=== PATIENT | female | born 1930 | race Caucasian/White ===

== ENCOUNTER → 2016-11-09 | Outpatient (CLI) | payer MEDICARE, OTHER ==
[~2016-11-09] MED LIST: AMBIEN 10MG10 MG PO; AMBIEN10 MG PO; AMITRIPTYLINE25 MG PO; AMITRIPTYLINE50 MG PO; ANTIVERT 25MG25 MG PO; ASPIRIN E.C. 8181 MG PO; C-LEXIN500 MG PO; CARAFATE 1GM1 G PO; CHOLESTYRAM4 GM/5 GM PO; CIPRO 250MG TA250 MG PO; CITRACAL + D 251 TAB PO; CITRACEL; CITRUCEL WITH500 MG; CORDARONE200 MG/TAB PO; CRANBERRY500 M3; CRESTOR40 MG; CYCLOBENZAPRINE10 M1 PO; DIGOXIN0.25 MG PO; EFFEXOR XR75 MG/CAP PO; EXCEDRIN DUAL500 MG PO; FE-TABS325 MG PO; FERROUS SU325 MG/TAB PO; GLUCOPHAGE1000 MG PO; GLUCOPHAGE850 MG/TAB PO; HYDROCODONE/APAP; JANUVIA 100MG100 MG; JANUVIA 100MG100 MG PO; KLONOPIN 1MG1 MG PO; KLONOPIN1 MG PO; LIBRIUM 5MG5 MG/CAP PO; LIBRIUM5 MG PO; LOPRESSOR 225 MG/TAB PO; LOPRESSOR PO; LORTAB 7.5/5001 TAB PO; MAXZIDE-25MG TA1 TAB PO; MECLICOT25 MG PO; MECLIZINE25 MG PO; METFORMIN850 MG PO; NEXIUM 40MG40 MG PO; NEXIUM PO; NORCO 325 MG-101 TAB PO; NORCO 325 MG-7.1 TAB; NORCO 325 MG-7.1 TAB PO; OMEGA 31000 MG PO; PACERONE200 MG PO; PERCOCET 325 MG1 TA2 PO; PERCOCET 325 MG1 TAB PO; RESOURCE BENEFI1 PDR PO; ST. JOSEPH81 M2 PO; TRIAMTERENE/HCT1 TAB PO; TRICOR 48MG48 MG PO; TRILIPIX45 MG PO; TYLENOL 500MG500 MG PO; VERAPAMIL HCL80 MG PO; VERAPAMIL240 MG PO; VESICARE10 MG PO; VITAMIN C BUFF500 MG PO; VITAMIN C500 MG PO; VITAMIN E 400 U4001 PO; VITAMIN E28000 IU PO; VYTORIN 10 MG-21 TAB PO; VYTORIN PO; XARELTO15 MG PO; ZOLPIDEM10 MG PO; [UNRECOGNIZED DRUG - CODE] PO; [UNRECOGNIZED DRUG - OTHER]; citrucel
== END ==
LOC: COL.RAD 13:16
DX: G31.89 Other specified degenerative diseases of nervous system (principal); I67.82 Cerebral ischemia; R41.82 Altered mental status, unspecified
CPT/HCPCS: A9585

== ENCOUNTER 2017-10-26 11:30 | Emergency (ER) | payer MEDICARE, OTHER ==
[~2017-10-26] VITALS: Ht 157.5 cm; Wt 59.1 kg
[2017-10-26 11:35] VITALS: TEMP 98.5
[2017-10-26] MEDS ORDERED: JANUVIA 100MG100 MG PO (12:34)
[2017-10-26] MEDS ORDERED: NAMENDA 10MG TA10 MG PO (12:38)
[2017-10-26 13:27] VITALS: BP 116/67; PULSE 68
== END 2017-10-26 13:33 | disposition home or self-care (01) ==
LOC: COL.ER 11:30
DX: S70.01XA Contusion of right hip, initial encounter (principal); I10 Essential (primary) hypertension; E78.5 Hyperlipidemia, unspecified; I48.91 Unspecified atrial fibrillation; Z85.528 Personal history of other malignant neoplasm of kidney; Z87.440 Personal history of urinary (tract) infections; Z79.84 Long term (current) use of oral hypoglycemic drugs; Z96.641 Presence of right artificial hip joint; W18.39XA Other fall on same level, initial encounter; Y92.002 Bathroom of unspecified non-institutional (private) residence as the place of occurrence of the external cause

== ENCOUNTER 2017-11-03 12:15 | Emergency (ER) | payer MEDICARE, OTHER ==
[~2017-11-03] VITALS: Ht 157.5 cm; Wt 59.1 kg
[~2017-11-03 12:15] MED LIST changes: +NAMENDA 10MG TA10 MG PO
[2017-11-03 12:19] VITALS: BP 134/87; TEMP 98.5
[2017-11-03] MEDS ORDERED: NORCO 325 MG-51 TAB PO (14:24)
[2017-11-03 14:34] VITALS: PULSE 77
== END 2017-11-03 14:34 | disposition home or self-care (01) ==
LOC: COL.ER 12:15
DX: M17.0 Bilateral primary osteoarthritis of knee (principal); I48.91 Unspecified atrial fibrillation; Z79.84 Long term (current) use of oral hypoglycemic drugs

== ENCOUNTER 2018-07-29 17:34 | Emergency (ER) | payer MEDICARE, OTHER ==
[~2018-07-29] VITALS: Ht 157.5 cm; Wt 77.3 kg
[~2018-07-29 17:34] MED LIST changes: +B-12 500 MCG PO; +FOLIC ACID800 MCG PO; +MACROBID 1100 MG/CAP PO; +METAMUCIL3.4 GM/DOS PO; +NATURAL E400 IU PO; +NORCO 325 MG-51 TAB PO; +OXYGEN MC; +PROTONIX 40MG T40 MG PO
[2018-07-29 17:43] VITALS: TEMP 99.2
[2018-07-29 18:31] LABS: BASO % 0.4 % (0.0-2.0); EOS # 0.2 (0.0-0.7); EOS % 3.8 % (0-4.0); GRAN # 2.5 (1.4-6.5); GRAN % 49.9 % (42.2-75.2); HEMATOCRIT 37.2 % (37.0-47.0); HEMOGLOBIN 11.1 g/dl (12.5-16.0); LYMPH # 1.9 (1.2-3.4); LYMPH % 38.7 % (20.0-51.0); MEAN CELL VOLUME 87 fl (80.0-100.0); MEAN CORPUSCULAR HEMOGLOBIN 26 pg (27.0-31.0); MEAN CORPUSCULAR HGB CONC 30 g/dl (33.0-37.0); MONO # 0.4 (0.1-0.6); PLATELET COUNT 256 K/mm3 (130-400); RED BLOOD COUNT 4.28 M/mm3 (4.10-5.30); REDCELL DISTRIBUTION WIDTH-CV 16.3 % (11.5-14.5)
[2018-07-29 18:53] LABS: ALBUMIN 3.9 gm/dL (3.5-5.0); BILIRUBIN,TOTAL 0.3 mg/dL (0.0-1.0); CALCIUM 9.8 mg/dL (8.4-10.2); CREATININE, serum 1.17 mg/dL (0.52-1.25); MAGNESIUM 1.7 mg/dL (1.6-2.3); POTASSIUM 4.8 mmol/L (3.4-5.0); TOTAL PROTEIN 7.4 gm/dL (6.4-8.2)
[2018-07-29 19:23] LABS: COLLECTION METHOD CATHETER
[2018-07-29 19:34] LABS: BUDDING YEAST Present /hpf; MUCOUS Present /lpf; PH 6 (5-8); SQUAMOUS EPITHELIAL None Seen /hpf; URINE APPEARANCE Cloudy; URINE BACTERIA Rare /hpf; URINE BILIRUBIN Negative (NEGATIVE); URINE BLOOD 1+ (NEGATIVE); URINE COLOR Yellow; URINE GLUCOSE Negative (NEGATIVE); URINE KETONE Negative (NEGATIVE); URINE LEUKOCYTE ESTERASE 3+ (NEGATIVE); URINE NITRATE Negative (NEGATIVE); URINE PROTEIN(semi-quant) 2+ (NEGATIVE); URINE UROBILINOGEN Negative (NEGATIVE)
[2018-07-29] MEDS ORDERED: MACROBID 1100 MG/CAP PO (20:05)
[2018-07-29 20:25] VITALS: BP 176/89; PULSE 71
== END 2018-07-29 20:28 | disposition home or self-care (01) ==
LOC: COL.ER 17:34
PROVIDERS: Emergency Medicine
DX: N39.0 Urinary tract infection, site not specified (principal); Z79.84 Long term (current) use of oral hypoglycemic drugs
CPT/HCPCS: J7030

== ENCOUNTER 2018-08-17 18:45 | Emergency (ER) | payer MEDICARE, OTHER ==
[~2018-08-17] VITALS: Ht 157.5 cm; Wt 59.1 kg
[2018-08-17 22:10] VITALS: BP 129/78; PULSE 98; TEMP 98.4
== END 2018-08-17 22:10 | disposition home or self-care (01) ==
LOC: COL.ER 18:45
DX: K56.41 Fecal impaction (principal); E78.5 Hyperlipidemia, unspecified; F32.9 Major depressive disorder, single episode, unspecified; Z90.710 Acquired absence of both cervix and uterus

== ENCOUNTER 2018-10-23 16:01 | Observation (INO) | payer MEDICARE, OTHER ==
[~2018-10-23] VITALS: Ht 157.5 cm; Wt 60.8 kg
[~2018-10-23 16:01] MED LIST changes: +ARICEPT 5MG; +ARICEPT 5MG PO; +BENTYL 20MG20 MG/TAB PO; +FERRO-TIME325 MG PO; +LASIX 20MG TABL20 MG PO; +LINZESS72 MCG PO; +PACERONE100 MG PO; +TOPROL XL 25MG25 MG PO
[2018-10-23 17:16] LABS: BASO % 0.5 % (0.0-2.0); EOS # 0.3 (0.0-0.7); GRAN # 5.2 (1.4-6.5); GRAN % 69.3 % (42.2-75.2); HEMATOCRIT 38.2 % (37.0-47.0); HEMOGLOBIN 11.7 g/dl (12.5-16.0); LYMPH # 1.5 (1.2-3.4); LYMPH % 19.3 % (20.0-51.0); MEAN CELL VOLUME 82 fl (80.0-100.0); MEAN CORPUSCULAR HEMOGLOBIN 25 pg (27.0-31.0); MEAN CORPUSCULAR HGB CONC 31 g/dl (33.0-37.0); MEAN PLATELET VOLUME 8.9 fl (7.4-10.4); MONO # 0.5 (0.1-0.6); MONO % 6.6 % (1.7-9.3); PLATELET COUNT 367 K/mm3 (130-400); RED BLOOD COUNT 4.68 M/mm3 (4.10-5.30); REDCELL DISTRIBUTION WIDTH-CV 16.4 % (11.5-14.5)
[2018-10-23 17:26] LABS: BILIRUBIN,TOTAL 0.4 mg/dL (0.0-1.0); CALCIUM 10.1 mg/dL (8.4-10.2); CREATININE, serum 0.88 mg/dL (0.52-1.25); POTASSIUM 4.6 mmol/L (3.4-5.0)
[2018-10-23 18:16] LABS: COLLECTION METHOD CATHETER
[2018-10-23 18:27] LABS: AMORPHOUS CRYSTAL Present /uL; PH 5 (5-8); SQUAMOUS EPITHELIAL 0-2 /hpf; URINE APPEARANCE Cloudy; URINE BACTERIA Rare /hpf; URINE BILIRUBIN Negative (NEGATIVE); URINE BLOOD 2+ (NEGATIVE); URINE COLOR Yellow; URINE GLUCOSE Negative (NEGATIVE); URINE KETONE Negative (NEGATIVE); URINE LEUKOCYTE ESTERASE 2+ (NEGATIVE); URINE NITRATE Negative (NEGATIVE); URINE PROTEIN(semi-quant) 3+ (NEGATIVE); URINE RBC None Seen /hpf; URINE UROBILINOGEN Negative (NEGATIVE)
[2018-10-24 01:11] VITALS: BP 152/74; PULSE 87; TEMP 98.7
[2018-10-24 04:09] VITALS: BP 134/76; PULSE 80; TEMP 99
[2018-10-24 08:54] VITALS: BP 144/91; BP 162/68; PULSE 72; TEMP 98.1
[2018-10-24 11:24] VITALS: BP 101/46; PULSE 73; TEMP 98.5
[2018-10-24 15:35] VITALS: BP 132/65; PULSE 69; TEMP 98.5
[2018-10-24 20:44] VITALS: BP 127/54; PULSE 73; TEMP 98.8
[2018-10-25 00:08] LABS: HEMOGLOBIN 11.1 g/dl (12.5-16.0); MEAN CELL VOLUME 83 fl (80.0-100.0); MEAN CORPUSCULAR HEMOGLOBIN 26 pg (27.0-31.0); MEAN CORPUSCULAR HGB CONC 31 g/dl (33.0-37.0); PLATELET COUNT 356 K/mm3 (130-400); RED BLOOD COUNT 4.33 M/mm3 (4.10-5.30); REDCELL DISTRIBUTION WIDTH-CV 16.4 % (11.5-14.5)
[2018-10-25 00:09] LABS: HEMATOCRIT 35.8 % (37.0-47.0)
[2018-10-25 00:15] LABS: INR 1.4 (0.8-3.0); PROTHROMBIN TIME 15.6 SECONDS (9.7-12.8)
[2018-10-25 00:18] LABS: PARTIAL THROMBOPLASTIN TIME 35.4 SECONDS (26.0-37.0)
[2018-10-25 00:19] LABS: CALCIUM 9.6 mg/dL (8.4-10.2); CREATININE, serum 1.2 mg/dL (0.52-1.25); POTASSIUM 4.8 mmol/L (3.4-5.0)
[2018-10-25 00:21] VITALS: BP 140/70; PULSE 68; TEMP 98.2
[2018-10-25 03:56] VITALS: BP 151/75; PULSE 67; TEMP 98.1
[2018-10-25 07:45] VITALS: BP 160/74; PULSE 71; TEMP 98.9
[2018-10-25 08:39] VITALS: BP 151/82; PULSE 69
[2018-10-25 11:44] VITALS: BP 157/71; PULSE 62; TEMP 98.7
[2018-10-25 16:04] VITALS: BP 127/91; PULSE 66; TEMP 98.9
[2018-10-25] MEDS ORDERED: KLONOPIN 1MG1 MG PO (16:27)
== END 2018-10-25 18:06 | disposition home health service (06) ==
LOC: COL.ER 16:01 → MEDICAL 20:38
PROVIDERS: Emergency Medicine; Internal Medicine Interventional Cardiology
DX: R09.02 Hypoxemia (principal); F41.9 Anxiety disorder, unspecified; G30.9 Alzheimer's disease, unspecified; F02.80 Dementia in other diseases classified elsewhere, unspecified severity, without behavioral disturbance, psychotic disturbance, mood disturbance, and anxiety; F41.8 Other specified anxiety disorders; F32.9 Major depressive disorder, single episode, unspecified; I50.9 Heart failure, unspecified; I48.91 Unspecified atrial fibrillation; I25.2 Old myocardial infarction; Z90.710 Acquired absence of both cervix and uterus; Z79.01 Long term (current) use of anticoagulants; Z79.84 Long term (current) use of oral hypoglycemic drugs; Z88.1 Allergy status to other antibiotic agents; Z88.8 Allergy status to other drugs, medicaments and biological substances
CPT/HCPCS: A4216; G0378; J0696; J1644; J1940; J2405; J3010; J7030; Q9967

== ENCOUNTER 2018-12-07 11:17 | Emergency (ER) | payer MEDICARE, OTHER ==
[~2018-12-07] VITALS: Ht 160 cm; Wt 59.1 kg
[2018-12-07 11:34] VITALS: TEMP 97.9
[2018-12-07] MEDS ORDERED: CARAFATE 1GM1 G PO (11:52)
[2018-12-07] MEDS ORDERED: TRICOR 48MG48 MG PO (11:52)
[2018-12-07 12:19] LABS: BASO % 0.4 % (0.0-2.0); EOS # 0.3 (0.0-0.7); EOS % 6.8 % (0-4.0); GRAN % 40.7 % (42.2-75.2); HEMATOCRIT 38.8 % (37.0-47.0); HEMOGLOBIN 11.5 g/dl (12.5-16.0); LYMPH # 2.1 (1.2-3.4); LYMPH % 42.7 % (20.0-51.0); MEAN CELL VOLUME 88 fl (80.0-100.0); MEAN CORPUSCULAR HEMOGLOBIN 26 pg (27.0-31.0); MEAN CORPUSCULAR HGB CONC 30 g/dl (33.0-37.0); MEAN PLATELET VOLUME 10.1 fl (7.4-10.4); MONO # 0.5 (0.1-0.6); MONO % 9.2 % (1.7-9.3); PLATELET COUNT 136 K/mm3 (130-400); RED BLOOD COUNT 4.43 M/mm3 (4.10-5.30); REDCELL DISTRIBUTION WIDTH-CV 20.6 % (11.5-14.5)
[2018-12-07 12:30] LABS: ALBUMIN 3.6 gm/dL (3.5-5.0); BILIRUBIN,TOTAL 0.2 mg/dL (0.0-1.0); CALCIUM 9.3 mg/dL (8.4-10.2); CREATININE, serum 1.1 mg/dL (0.52-1.25); POTASSIUM 5.1 mmol/L (3.4-5.0); TOTAL PROTEIN 6.7 gm/dL (6.4-8.2)
[2018-12-07 12:32] LABS: PH 5 (5-8); SQUAMOUS EPITHELIAL 0-2 /hpf; URINE APPEARANCE Turbid; URINE BACTERIA None Seen /hpf; URINE BILIRUBIN Negative (NEGATIVE); URINE BLOOD 1+ (NEGATIVE); URINE COLOR Yellow; URINE GLUCOSE Negative (NEGATIVE); URINE KETONE Negative (NEGATIVE); URINE LEUKOCYTE ESTERASE 3+ (NEGATIVE); URINE NITRATE Negative (NEGATIVE); URINE PROTEIN(semi-quant) Negative (NEGATIVE); URINE RBC 0-2 /hpf; URINE UROBILINOGEN Negative (NEGATIVE)
[2018-12-07 13:27] LABS: COLLECTION METHOD CATHETER
[2018-12-07] MEDS ORDERED: OMNICEF 300MG300 MG PO (13:38)
[2018-12-07 13:51] VITALS: BP 99/50; PULSE 87
== END 2018-12-07 14:01 | disposition home or self-care (01) ==
LOC: COL.ER 11:17
PROVIDERS: Emergency Medicine
DX: N39.0 Urinary tract infection, site not specified (principal); I50.9 Heart failure, unspecified; I48.91 Unspecified atrial fibrillation; E11.9 Type 2 diabetes mellitus without complications; Z90.710 Acquired absence of both cervix and uterus; Z79.84 Long term (current) use of oral hypoglycemic drugs
CPT/HCPCS: A4216; J0696; J2270; J2405; Q9967

== ENCOUNTER 2019-02-07 12:59 | Emergency (ER) | payer MEDICARE, OTHER ==
[~2019-02-07] VITALS: Ht 157.5 cm; Wt 61.4 kg
[~2019-02-07 12:59] MED LIST changes: +OMNICEF 300MG300 MG PO
[2019-02-07 13:10] VITALS: TEMP 97.5
[2019-02-07 13:52] LABS: BASO % 0.6 % (0.0-2.0); EOS # 0.1 (0.0-0.7); EOS % 1.2 % (0-4.0); GRAN # 4.5 (1.4-6.5); GRAN % 65.1 % (42.2-75.2); HEMATOCRIT 39.2 % (37.0-47.0); HEMOGLOBIN 12.4 g/dl (12.5-16.0); LYMPH # 1.7 (1.2-3.4); MEAN CELL VOLUME 94 fl (80.0-100.0); MEAN CORPUSCULAR HEMOGLOBIN 30 pg (27.0-31.0); MEAN CORPUSCULAR HGB CONC 32 g/dl (33.0-37.0); MONO # 0.6 (0.1-0.6); PLATELET COUNT 169 K/mm3 (130-400); RED BLOOD COUNT 4.17 M/mm3 (4.10-5.30); REDCELL DISTRIBUTION WIDTH-CV 17.9 % (11.5-14.5)
[2019-02-07 14:05] LABS: ALBUMIN 3.8 gm/dL (3.5-5.0); BILIRUBIN,TOTAL 0.3 mg/dL (0.0-1.0); CALCIUM 9.6 mg/dL (8.4-10.2); CREATININE, serum 0.84 (0.52-1.25); POTASSIUM 4.7 mmol/L (3.4-5.0); TOTAL PROTEIN 7.2 gm/dL (6.4-8.2)
[2019-02-07 14:27] LABS: COLLECTION METHOD CATHETER
[2019-02-07 14:38] LABS: AMORPHOUS CRYSTAL Present /uL; PH 7 (5-8); SQUAMOUS EPITHELIAL None Seen /hpf; URINE APPEARANCE Clear; URINE BACTERIA None Seen /hpf; URINE BILIRUBIN Negative (NEGATIVE); URINE BLOOD 1+ (NEGATIVE); URINE COLOR Yellow; URINE GLUCOSE Negative (NEGATIVE); URINE KETONE Negative (NEGATIVE); URINE LEUKOCYTE ESTERASE 1+ (NEGATIVE); URINE NITRATE Negative (NEGATIVE); URINE PROTEIN(semi-quant) 2+ (NEGATIVE); URINE UROBILINOGEN Negative (NEGATIVE)
[2019-02-07] MEDS ORDERED: CEPHALEXIN500 M1 PO (14:49)
[2019-02-07 15:20] VITALS: BP 162/103; PULSE 116
--- NOTE | 2019-02-07 16:07 | NUR ---
HUMBLE responded to an ED consult due to home environment concerns and possibly home health needs. HUMBLE met with patient and son. Patient's son is the primary water use inspector. Patient's PCP is concerned because patient's son has psychiatric issues and is not currently taking his medications. Patient reported to her PCP that she has not been sleeping because the house is cold. There was concern that patient's house does not have heat. HUMBLE addressed this and patient's son reported he contacted the heating [employer] and they fixed it. HUMBLE contacted the [employer] as well and confirmed the issue was not due to inability to pay the bill. Patient's son reported patient has a home health aid through [employer] that visits once a week. HUMBLE contacted [employer] and confirmed this as well. HUMBLE also made an APS reports (intake ID [id number]). HUMBLE reported back to nurse.
== END 2019-02-07 15:52 | disposition home or self-care (01) ==
LOC: COL.ER 12:59
PROVIDERS: Emergency Medicine
DX: R19.7 Diarrhea, unspecified (principal); N39.0 Urinary tract infection, site not specified; I48.92 Unspecified atrial flutter
CPT/HCPCS: J2405; J7030

== ENCOUNTER 2019-02-15 07:01 | Inpatient (IN) | payer MEDICARE, OTHER ==
[~2019-02-15] VITALS: Ht 160 cm; Wt 59.1 kg
[~2019-02-15 07:01] MED LIST changes: +CEPHALEXIN500 M1 PO
[2019-02-15 07:49] LABS: BASO % 0.3 % (0.0-2.0); EOS # 0.2 (0.0-0.7); EOS % 3.7 % (0-4.0); GRAN # 4.2 (1.4-6.5); HEMOGLOBIN 11.1 g/dl (12.5-16.0); LYMPH # 1.5 (1.2-3.4); LYMPH % 23.7 % (20.0-51.0); MEAN CELL VOLUME 96 fl (80.0-100.0); MEAN CORPUSCULAR HEMOGLOBIN 30 pg (27.0-31.0); MEAN CORPUSCULAR HGB CONC 31 g/dl (33.0-37.0); MEAN PLATELET VOLUME 9.4 fl (7.4-10.4); MONO # 0.3 (0.1-0.6); PLATELET COUNT 207 K/mm3 (130-400); RED BLOOD COUNT 3.66 M/mm3 (4.10-5.30); REDCELL DISTRIBUTION WIDTH-CV 16.8 % (11.5-14.5)
[2019-02-15 07:50] LABS: HEMATOCRIT 35.3 % (37.0-47.0)
[2019-02-15 07:59] LABS: ALBUMIN 3.6 gm/dL (3.5-5.0); BILIRUBIN,TOTAL 0.7 mg/dL (0.0-1.0); CALCIUM 9.7 mg/dL (8.4-10.2); CREATININE, serum 0.81 (0.52-1.25); POTASSIUM 4.1 mmol/L (3.4-5.0); TOTAL PROTEIN 7.2 gm/dL (6.4-8.2)
[2019-02-15 08:00] LABS: COLLECTION METHOD CATHETER
[2019-02-15 08:05] LABS: PH 5 (5-8); SQUAMOUS EPITHELIAL None Seen /hpf; URINE APPEARANCE Hazy; URINE BACTERIA None Seen /hpf; URINE BILIRUBIN Negative (NEGATIVE); URINE BLOOD 1+ (NEGATIVE); URINE COLOR Yellow; URINE GLUCOSE 1+ (NEGATIVE); URINE KETONE Negative (NEGATIVE); URINE LEUKOCYTE ESTERASE 2+ (NEGATIVE); URINE NITRATE Negative (NEGATIVE); URINE PROTEIN(semi-quant) 2+ (NEGATIVE); URINE RBC 20-50 /hpf; URINE UROBILINOGEN Negative (NEGATIVE)
[2019-02-15 08:26] LABS: TROPONIN-I 0.064 ng/mL (0.000-0.035)
[2019-02-15] MEDS ORDERED: ARICEPT 5MG PO ×2 (09:22→15:27)
[2019-02-15 11:09] VITALS: BP 153/92; PULSE 91; TEMP 97.5
--- NOTE | 2019-02-15 15:00 | NUR ---
Patient alert, confused to time and year. See assessment. Short term memory noted to be decreased. C/o urinary frequency and burning. No other c/o at this time.
[2019-02-15] MEDS ORDERED: KLONOPIN 1MG1 MG PO (15:24)
[2019-02-15] MEDS ORDERED: VESICARE10 MG PO (15:25)
[2019-02-15] MEDS ORDERED: XARELTO15 MG PO (15:25)
[2019-02-15] MEDS ORDERED: NORCO 325 MG-7.1 TAB PO (15:26)
[2019-02-15] MEDS ORDERED: EFFEXOR 75M75 MG/TAB PO (15:26)
[2019-02-15] MEDS ORDERED: TOPROL XL 25MG25 MG PO (15:27)
[2019-02-15] MEDS ORDERED: LINZESS72 MCG PO (15:28)
[2019-02-15 17:18] VITALS: BP 155/99; PULSE 86; TEMP 97.9
--- NOTE | 2019-02-15 20:00 | NUR ---
Assessment completed- lungs clear, abdominal sounds active, pulses +3, cap refill <3 seconds, denies pian.
[2019-02-15 20:17] VITALS: BP 151/91; PULSE 122; TEMP 98.6
--- NOTE | 2019-02-15 23:02 | NUR ---
Patient recieved an Ambien this evening to help with insomnia. One hour later found wandering hallway. Patient has been moved to room 313 to be closer to nurse's station. Pt put in yellow gown, slippers, bed alarm turned on. Klonipin administered. Lab called- 6 hour troponin never drawn. Dr. Brooks notified- has orders for troponin in the am, changed klonopin from BID to q4h PRN.
--- NOTE | 2019-02-15 23:59 | NUR ---
PT REFUSING MIDNIGHT VITALS AT THIS TIME.
--- NOTE | 2019-02-16 04:24 | NUR ---
NO VITALS AT THIS TIME, PT WILL NOT LET NURSES GET VITALS WHILE SHE IS SLEEPING
--- NOTE | 2019-02-16 05:16 | NUR ---
After pt settled down for the evening, pt has been sleeping. Have not been able to obtain vitals due to agitation and unwillingness to let nurse's near pt. Pt currently asleep, bed alarm on, call light in reach, in view of nurse's station.
--- NOTE | 2019-02-16 07:30 | NUR ---
REPORT GIVEN TO LIBORIO GEORGE. PATIENT GETTING LABS DRAWN AT THIS TIME.
[2019-02-16 08:38] VITALS: BP 157/96; PULSE 115; TEMP 97.4
[2019-02-16 10:25] VITALS: BP 145/75; PULSE 119; TEMP 97.5
[2019-02-16 10:37] LABS: CALCIUM 9.5 mg/dL (8.4-10.2); CREATININE, serum 0.8 (0.52-1.25); POTASSIUM 4.4 mmol/L (3.4-5.0)
[2019-02-16 10:51] LABS: TROPONIN-I 0.054 ng/mL (0.000-0.035)
--- NOTE | 2019-02-16 12:40 | NUR ---
Patient lives at home with her son (Aime) in [place], [place] and plans to return home upon discharge if her son feels he can continue to care for her as he is her primary caregiver. Patient uses a walker for mobility assistance as needed, her primary care physician is Dr. Donavan Brooks, and her pharmacy is [facility]. Patient does not currently have advance directive paperwork completed but has been discussing durable power of business attorney paperwork with her primacy care physician and her son. No further needs at this time and social worker aide will follow as needed.
[2019-02-16 18:02] VITALS: BP 146/73; PULSE 68; TEMP 97.9
--- NOTE | 2019-02-16 18:24 | NUR ---
END OF SHIFT NOTE. PATIENT AGITATED AND IMPULSIVE THIS MORNING. PATIENT GIVEN PRN DOSE OF KOLONIPIN. PATIENT A&O TO SELF, YEAR AND THAT SHE IS IN THE HOSPITAL. TACHYCARDIA NOTED, OTHERWISE VSS. POSITIVE PEDAL PULSES EQUAL BILATERALLY. 2+ PITTING-EDEMA TO BLE NOTED. RIGHT HAND TO INT. SEE MORNING ASSESSMENT. SON PRESENT AT THE BEDSIDE FOR MOST OF THE MORNING. FALL RISK PRECAUTIONS IN PLACE.
--- NOTE | 2019-02-16 19:17 | NUR ---
Report received from Steph CAPONE
[2019-02-16 19:36] VITALS: BP 158/69; PULSE 60; TEMP 97.6
--- NOTE | 2019-02-16 21:00 | NUR ---
Up to bedside commode and returned to bed. Assessment complete. Lungs clear. Heart sounds normal. Bowels active x4. Bilateral lower leg edema +3. Reports 6/10 generalized pain. Primary reports right lower leg. Will provide PRN norco as ordered. INT to right AC flushed without complications. Patient orientated to self and place, unable to state date. Neuro checks completed and charted. Denies other needs at this time. Bed alarm in place.
[2019-02-17 00:05] VITALS: BP 139/84; PULSE 45; TEMP 98.7
--- NOTE | 2019-02-17 00:09 | NUR ---
Up to bedside commode and returned to bed. Call light in reach. Bed alarm in place
[2019-02-17 03:50] VITALS: BP 148/98; PULSE 116; TEMP 98.3
--- NOTE | 2019-02-17 04:17 | NUR ---
Up to restroom and returned to bed. Call light in reach.
--- NOTE | 2019-02-17 04:28 | NUR ---
Rating pain 6/10 in ABD, rectum and right leg. Provided with PRN norco
--- NOTE | 2019-02-17 06:08 | NUR ---
Patient resting in bed this AM. Had uneventful night. Given x2 doses of norco for rectal and back pain during night. Denies needs at this time. Call light in reach.
--- NOTE | 2019-02-17 07:13 | NUR ---
Report given to LIBORIO Beckman
[2019-02-17 07:39] VITALS: BP 152/92; PULSE 117; TEMP 97.7
--- NOTE | 2019-02-17 08:07 | NUR ---
Pt assessment complete. Pt is laying in bed upon entry, she is alert and oriented to person only. She is currently reporting LLQ and rectum pain. Patient assisted to the bedside cammode with assistance of one, bloody urine present. Breakfast ordered for patient. No needs at this time. Call light within reach.
[2019-02-17 11:47] VITALS: BP 154/84; PULSE 108; TEMP 97.3
--- NOTE | 2019-02-17 14:18 | NUR ---
SW contacted [facility] and talked with patients case manager. She reports they were doing weekly private pay medication management until patients son cancelled that mid dec due to him feeling that he could do that. They still see her weekly for bathing but that is the only service they provide.
--- NOTE | 2019-02-17 14:36 | NUR ---
HUMBLE left voicemails for both Halima and Taryn at [facility].
[2019-02-17 15:45] VITALS: BP 139/79; PULSE 41; TEMP 97.6
--- NOTE | 2019-02-17 15:51 | NUR ---
SW talked to patients financial PRADEEP Mcfadden who reports patient probably has around 40k in accounts. He didn't know that her memory was getting worse and reports he will contact patient and son in a few days.
--- NOTE | 2019-02-17 16:33 | NUR ---
SW called patients son and discussed placement. He is open to senior care at this time and would like [facility] and [facility]. Referrals made to both. verbal choice form placed on chart.
--- NOTE | 2019-02-17 17:54 | NUR ---
Pt straight cath'd for urine sample. Sterile procedure followed. Approximately 200mls or urine drained. Pt tolerated without complications. No needs at this time.
[2019-02-17 18:07] LABS: COLLECTION METHOD CATHETER
[2019-02-17 18:29] LABS: AMORPHOUS CRYSTAL Present /uL; MUCOUS Present /lpf; PH 5 (5-8); SQUAMOUS EPITHELIAL 0-2 /hpf; URINE APPEARANCE Hazy; URINE BACTERIA Rare /hpf; URINE BILIRUBIN Negative (NEGATIVE); URINE BLOOD 3+ (NEGATIVE); URINE COLOR Yellow; URINE GLUCOSE Negative (NEGATIVE); URINE KETONE Negative (NEGATIVE); URINE LEUKOCYTE ESTERASE Trace (NEGATIVE); URINE NITRATE Negative (NEGATIVE); URINE PROTEIN(semi-quant) 1+ (NEGATIVE); URINE RBC >50 /hpf; URINE UROBILINOGEN Negative (NEGATIVE)
--- NOTE | 2019-02-17 18:54 | NUR ---
Pt had uneventful day. Frequent urination, initially very bloody - cleared up through the day. Continued to report LL abdominal pain and rectum pain, Dr. Brooks aware. Pt sleeping at this time. Call light within reach.
[2019-02-17 19:25] VITALS: BP 150/78; PULSE 83; TEMP 98.7
--- NOTE | 2019-02-17 21:30 | NUR ---
Up to bedside commode and returned to bed. Assessment complete. Lungs clear. Heart sounds normal. Bowels active x4. Pulses present throughout. Bilateral lower leg edema +2 present. Reports 4/10 stomach and leg pain. Provided with PRN norco. Denies other needs at this time. Call light in reach.
[2019-02-18] VITALS (7 sets, daily range): BP systolic 124–158; BP diastolic 61–116; PULSE 85–107; TEMP 97.2–98.4
--- NOTE | 2019-02-18 00:13 | NUR ---
Up to bedside commode and returned to bed. Reports 4/10 pain in stomach/rectum at this time. Will provide PRN norco when due. Denies other needs at this time. Call light in reach.
--- NOTE | 2019-02-18 04:10 | NUR ---
up to bedside commode and returned to bed. Call light in reach.
--- NOTE | 2019-02-18 05:55 | NUR ---
Provided norco for 8/ stomach and rectal pain.
--- NOTE | 2019-02-18 06:16 | NUR ---
Patient up to restroom several times throughout night, otherwise uneventful. Denies needs at this time. Call light reach.
--- NOTE | 2019-02-18 06:46 | NUR ---
Report given to LIBORIO Wolfe
--- NOTE | 2019-02-18 10:11 | NUR ---
PT SITTING IN BED, JUST HAD A BEDSIDE CYSTO. NO COMPLAINTS OF PAIN. BREATHING IS EVEN AND UNLABORED. PT IS ALERT AND ORIENTED TO PLACE. SHE GETS CONFUSED WHEN TALKING ABOUT MEDICATIONS OR WHY SHE IS IN THE HOSPITAL. SON AT BEDSIDE. COMPLETED MORNING ASSESSMENT. DENIES ANY NEEDS AT THIS TIME.
--- NOTE | 2019-02-18 10:20 | NUR ---
Trinidad, at [facility], reports that they are unable to accept the patient.
--- NOTE | 2019-02-18 10:40 | NUR ---
First visit from the water pump operator. No needs right now.
--- NOTE | 2019-02-18 13:59 | NUR ---
Abdirizak, at [facility], reports that they can accept the patient for a skilled stay. SW then met with the patient and patient's son to update on referrals. The patient and patient's son report that they are agreeable for patient to transfer to [facility] upon discharge. SW to fax updates to [facility] and continue to follow.
--- NOTE | 2019-02-18 15:00 | NUR ---
Pt states she had an upset stomach but that has passed now. Pt just had an eposiode of diarrhea. Pt states the cleaning is causing her rectal pain. Pt states pain is okay right now, will continue to monitor.
--- NOTE | 2019-02-18 15:26 | NUR ---
HUMBLE contacted Halima, with APS, for an update on status of a report made on the patient. Halima reports that the patient was assigned to Taryn and that Taryn will be back in the office tomorrow morning, 02/19, around 0800. HUMBLE to attempt to contact Taryn tomorrow morning.
--- NOTE | 2019-02-18 18:51 | NUR ---
Pt lying in bed, awakens to verbal stimuli. Denies any needs. Hand off report given to Janet CAPONE
--- NOTE | 2019-02-18 19:02 | NUR ---
Report received from Rolo Wolfe
--- NOTE | 2019-02-18 19:16 | NUR ---
Resting in bed. Assessment complete. Lungs clear. Heart sounds normal. Bowels active x4. Pulses present throught. Bilateral lower leg edema +2 present. Patient assisted to bedside commode to urinate. Yellow clear urine. Returned to bed. Denies needs at this time. INT to right AC flushes without complications. Denies pain. Call light in reach. Bed alarm in place.
--- NOTE | 2019-02-18 23:17 | NUR ---
Provided patient with PRN norco for 4/10 right leg pain
[2019-02-19] VITALS (7 sets, daily range): BP systolic 132–152; BP diastolic 72–99; PULSE 92–108; TEMP 97.3–98.4
--- NOTE | 2019-02-19 00:22 | NUR ---
Up to bedside commode and returned to bed. Denies pain. Call light in reach.
--- NOTE | 2019-02-19 01:44 | NUR ---
Report given to Fay CAPONE
--- NOTE | 2019-02-19 03:24 | NUR ---
recieved report from LIBORIO Gonzales. pt sleeping in bed at this time. call light inreach. bed alarm on.
--- NOTE | 2019-02-19 06:47 | NUR ---
pt had an uneventful night. assisted to C mult times throughout night. no pain. reported feeling jittery, no physical changes noted. steady with walker. no needs at this time. call light in reach
--- NOTE | 2019-02-19 08:20 | NUR ---
Pt up in chair, with breakfast. Pt is alert and partially oriented. Completed morning assessment. Pt breathing even and unlabored, denies pain or shortness of breath. Pt complains of numbness in finger tips and is anxious about why there had been blood in urine. Assured pt as soon as results from the cysto was received she would be updated. Pt still urinating frequently. Son at bedside. Call light in reach.
[2019-02-19] MEDS ORDERED: EXELON PAT4.6 MG/24 TD (13:14)
[2019-02-19] MEDS ORDERED: Remove Patch TD (13:14)
--- NOTE | 2019-02-19 13:18 | NUR ---
HUMBLE attempted to contact Taryn, APS Worker, to update. HUMBLE left a voicemail.
--- NOTE | 2019-02-19 15:00 | NUR ---
community services officer spoke with pt about discharging, pt stated she would not go there and needed to go home. I went in room to speak with pt after speaking with Dr. Brooks. Explained to pt why Dr. Brooks requested she go to [facility]. Pt was adamant that she would not go to [facility]. Following up with secondary social studies teacher.
--- NOTE | 2019-02-19 16:41 | NUR ---
HUMBLE met with the patient and patient's son to review discharge plan. The patient requested to speak to Dr. Brooks about her discharge disposition. The patient informed HUMBLE that at this time, she does not want to go to [facility]. Dr. Brooks came to speak to the patient and she is now agreeable to transfer to [facility] tomorrow morning, 02/20. HUMBLE updated Abdirizak at [facility] and will continue to follow.
--- NOTE | 2019-02-19 18:10 | NUR ---
Pt sitting on side of bed, denies pain. Pt has agreed to go to [facility] tomorrow. Her son Aime left but will be back again at 7am. Pt denies any needs at this time.
--- NOTE | 2019-02-19 19:09 | NUR ---
Gave report to Fay CAPONE. Pt in bed, eyes closed, breathing even and unlabored.
--- NOTE | 2019-02-19 21:30 | NUR ---
pt resting in bed Alert and partially oriented. pt is forgetful at times. no pain at this time. assisted to BSC with walker and gatebelt. shift assessment complete. IV flushes wellm no redness. no swelling. call light in reach. bed alarm on. fall precautions in place.
[2019-02-20 04:26] VITALS: BP 165/100; PULSE 91; TEMP 97.5
[2019-02-20 04:29] VITALS: BP 154/89
--- NOTE | 2019-02-20 05:46 | NUR ---
pt had an uneventful night. reported no pain no SOA. pt reported feeling jittery 45 mins after klonopin administeration. pt assisted to BSC mult times with walker and gatebelt. bed alarm on. no needs at thsi time. call light in reach
--- NOTE | 2019-02-20 07:15 | NUR ---
report given to LIBORIO Abbott. pt sleeping son in room
[2019-02-20 07:27] VITALS: BP 149/49; PULSE 107; TEMP 97.4
--- NOTE | 2019-02-20 07:45 | NUR ---
Patient is resting in bed, son is at bedside. Patient is expecting to discharge immediately. Dr. Brooks present at bedside and is explaining facts to patient and son. HR is regular S1S2. Lung sounds are clear. Bowel sounds audible. No edema noted. Is alert and with some confusion. Son is at bedside. Call light is within reach.
[2019-02-20 08:00] VITALS: BP 141/82; PULSE 107; TEMP 97.6
--- NOTE | 2019-02-20 10:25 | NUR ---
Dr. Brooks met with the patient this morning and the patient is agreeable to transfer to [facility] today. The patient's son is aware of discharge. The patient is to discharge today, 02/20, to [facility] for a skilled stay. Transportation was set for 1130, via [facility]. SW informed the patient's nurse. SW attempted to contact the patient's son, Aime, to inform of time. SW left a voicemail. No additional needs at this time.
--- NOTE | 2019-02-20 11:30 | NUR ---
Patient discharged to [facility] for detention care. Receiving facility picked patient up. Belongings sent with patient.
--- NOTE | 2019-02-20 12:10 | NUR ---
Primary nurse was assisted with [phone] patient care by [employer] student Frankie Mims and [employer] instructor Betty Shukla RN-BC
--- NOTE | 2019-02-20 16:09 | NUR ---
Taryn, APS Worker, left a voicemail for HUMBLE. She informed HUMBLE that she is working on paperwork for guardianship for the patient and that she is aware of the patient going to [facility].
== END 2019-02-20 11:30 | DRG 690 ==
LOC: COL.ER 07:01 → MEDICAL 08:47
PROVIDERS: Emergency Medicine; Urology; ADMIT Emergency Medicine
PROC: 0TJB8ZZ Inspection of Bladder, Via Natural or Artificial Opening Endoscopic (ICD-10-PCS; principal; 2019-02-18 13:00)
DX: N39.0 Urinary tract infection, site not specified (principal); F05 Delirium due to known physiological condition; I50.32 Chronic diastolic (congestive) heart failure; G30.9 Alzheimer's disease, unspecified; F02.80 Dementia in other diseases classified elsewhere, unspecified severity, without behavioral disturbance, psychotic disturbance, mood disturbance, and anxiety; J44.9 Chronic obstructive pulmonary disease, unspecified; I48.2 Chronic atrial fibrillation; E11.9 Type 2 diabetes mellitus without complications; E78.5 Hyperlipidemia, unspecified; Z85.520 Personal history of malignant carcinoid tumor of kidney; F32.9 Major depressive disorder, single episode, unspecified; Z91.14 Patient's other noncompliance with medication regimen; R31.0 Gross hematuria; Z79.01 Long term (current) use of anticoagulants
CPT/HCPCS: A4216; J0696; J7030; Q9967

== ENCOUNTER → 2019-03-03 | Outpatient (REF) ==
[~2019-03-03] MED LIST changes: +EFFEXOR 75M75 MG/TAB PO; +EXELON PAT4.6 MG/24 TD; +Remove Patch TD
[2019-03-03 12:54] LABS: COLLECTION METHOD CLEAN CATCH
[2019-03-03 13:01] LABS: PH 6 (5-8); SQUAMOUS EPITHELIAL 0-2 /hpf; URINE APPEARANCE Hazy; URINE BACTERIA None Seen /hpf; URINE BILIRUBIN Negative (NEGATIVE); URINE BLOOD 3+ (NEGATIVE); URINE COLOR Yellow; URINE GLUCOSE Negative (NEGATIVE); URINE KETONE Negative (NEGATIVE); URINE LEUKOCYTE ESTERASE Negative (NEGATIVE); URINE NITRATE Negative (NEGATIVE); URINE PROTEIN(semi-quant) 1+ (NEGATIVE); URINE RBC >50 /hpf; URINE UROBILINOGEN Negative (NEGATIVE)
== END ==
LOC: ZCOL.LAB 12:51
PROVIDERS: Emergency Medicine
DX: N39.0 Urinary tract infection, site not specified (principal)

== ENCOUNTER → 2019-03-06 | Outpatient (REF) ==
[2019-03-06 12:38] LABS: COLLECTION METHOD CLEAN CATCH
[2019-03-06 12:47] LABS: PH 7 (5-8); SQUAMOUS EPITHELIAL 0-2 /hpf; URINE APPEARANCE Clear; URINE BACTERIA None Seen /hpf; URINE BILIRUBIN Negative (NEGATIVE); URINE BLOOD 2+ (NEGATIVE); URINE COLOR Yellow; URINE GLUCOSE Negative (NEGATIVE); URINE KETONE Negative (NEGATIVE); URINE LEUKOCYTE ESTERASE Negative (NEGATIVE); URINE NITRATE Negative (NEGATIVE); URINE PROTEIN(semi-quant) 2+ (NEGATIVE); URINE RBC >50 /hpf; URINE UROBILINOGEN Negative (NEGATIVE)
== END ==
LOC: ZCOL.LAB 12:37
PROVIDERS: Emergency Medicine
DX: N39.0 Urinary tract infection, site not specified (principal)

== ENCOUNTER → 2019-05-15 | Outpatient (CLI) | payer MEDICARE, OTHER | LOC: ZCOL.LAB 09:23 | DX: E11.9 Type 2 diabetes mellitus without complications (principal); R94.6 Abnormal results of thyroid function studies ==

== ENCOUNTER 2019-08-03 17:33 | Inpatient (IN) | payer MEDICARE, OTHER ==
[2019-08-03] VITALS (275 sets, daily range): BP systolic 101; BP diastolic 76; PULSE 81; TEMP 98.5; O2SAT 45–100
[~2019-08-03] VITALS: Ht 154.9 cm; Wt 59.0 kg
[2019-08-03 18:09] LABS: BASO % 0.3 % (0.0-2.0); EOS # 0.1 (0.0-0.7); EOS % 1.1 % (0-4.0); GRAN # 4.9 (1.4-6.5); GRAN % 66.7 % (42.2-75.2); HEMATOCRIT 44.6 % (37.0-47.0); HEMOGLOBIN 13.9 g/dl (12.5-16.0); LYMPH # 1.7 (1.2-3.4); MEAN CELL VOLUME 84 fl (80.0-100.0); MEAN CORPUSCULAR HEMOGLOBIN 26 pg (27.0-31.0); MEAN CORPUSCULAR HGB CONC 31 g/dl (33.0-37.0); MEAN PLATELET VOLUME 9.4 fl (7.4-10.4); MONO # 0.6 (0.1-0.6); MONO % 8.5 % (1.7-9.3); PLATELET COUNT 224 K/mm3 (130-400); RED BLOOD COUNT 5.29 M/mm3 (4.10-5.30); REDCELL DISTRIBUTION WIDTH-CV 18.7 % (11.5-14.5)
[2019-08-03] MEDS ORDERED: ALMACONE 360 M360 ML PO (18:16)
[2019-08-03 18:18] LABS: ALANINE AMINOTRANSFERASE < 6 U/L (9-52); ALBUMIN 4.2 gm/dL (3.5-5.0); ALKALINE PHOSPHATASE 133 U/L (50-136); ANION GAP 15 mmol/L (7-16); AST,SGOT 24 U/L (15-37); BILIRUBIN,TOTAL 0.6 mg/dL (0.0-1.0); BLOOD UREA NITROGEN 31 mg/dL (7-17); CALCIUM 10.2 mg/dL (8.4-10.2); CARBON DIOXIDE 24 mmol/L (22-30); CHLORIDE 98 mmol/L (98-107); CREATINE KINASE 25 U/L (30-135); CREATININE, serum 1.63 (0.52-1.25); GLUCOSE 180 mg/dL (74-106); POTASSIUM 4.4 mmol/L (3.4-5.0); SODIUM 138 mmol/L (137-145); TOTAL PROTEIN 8.1 gm/dL (6.4-8.2)
[2019-08-03 18:36] LABS: TROPONIN-I 0.066 ng/mL (0.000-0.035)
[2019-08-03 18:45] LABS: INR 1.8 (0.8-3.0); PROTHROMBIN TIME 21.1 SECONDS (9.7-12.8)
[2019-08-03 18:47] LABS: PARTIAL THROMBOPLASTIN TIME 40.8 SECONDS (26.0-37.0)
--- NOTE | 2019-08-03 19:08 | NUR ---
LIBORIO Boyd calls at this time to give report on patient. Patient will be brought to ICU 5.
--- NOTE | 2019-08-03 19:22 | NUR ---
Patient arrives at this time via stretcher. Patient transferred to unit bed via slide. Attached patient to unit monitoring equipment and vitals obtained. Assessment complete. Patient is alert and oriented to self. Patient knows she is at [facility] in [place], but does not know why. Is unable to tell year, month, or date. Unclear if this is baseline for the patient. She follows commands and has strong and equal neurosurgery spine physician bilaterally. Patient has no complaints of pain unless right shoulder is moved. This is a chronic issue. Lungs are clear bilaterally with diminished bases. HR is irregular, normal S1 and S2 heard. Patient is in afib, but rate controlled in the 70-80's. BP is low 100's systolic and maintaining. Bowel sounds are active x4. Patient is found to be soiled in her brief, a small liquid BM. Patient cleaned and pericare provided. Placed patient on a purewick catheter for accurate I+O's. Patient's skin is intact, there is some excoriation around the groin that is tender to the touch. Barrier cream applied. Patient's pupils are sluggish, but reactive. Patient squints her left eye, when asked if in pain she denies. Oriented patient to room and unit, but is unclear how much she is retaining. Call light explained and she demonstrates correctly. Bed alarm on. Patient does have some belongings with her to include a walker, clothes and shoes, a watch, and 3 rings present on her hands. Patient denies want for belongings to be placed in the safe. Patient has no further needs at this time. Will continue to monitor. Call light within reach.
--- NOTE | 2019-08-03 20:50 | NUR ---
Patient placed on 2L NC. She desaturated to 89% while sleeping. Isatu RT notified.
[2019-08-04] VITALS (950 sets, daily range): BP systolic 106–134; BP diastolic 63–89; PULSE 63–91; TEMP 97.4–98; O2SAT 81–100
--- NOTE | 2019-08-04 | NUR ---
Patient asleep but awakens to name. Vitals obtained and remain stable. patient has no complaints of pain. No further needs at this time. Will continue to monitor. Call light within reach.
--- NOTE | 2019-08-04 04:00 | NUR ---
Patient continues to sleep. Awakens to name. Vitals obtained and remain stable. She continues to deny any pain. No further needs. Will continue to monitor. Call light within reach.
--- NOTE | 2019-08-04 07:00 | NUR ---
RECEIVED REPORT FROM LIBORIO SCHAFER. PT LYING IN BED. LAB AT BEDSIDE. VSS. PT ON 2L VIA NC. CALL LIGHT WITHIN REACH.
--- NOTE | 2019-08-04 07:05 | NUR ---
Bedside report given to LIBORIO Fall.
[2019-08-04 07:52] LABS: CREATININE, serum 1.42 (0.52-1.25); POTASSIUM 4.2 mmol/L (3.4-5.0)
--- NOTE | 2019-08-04 08:00 | NUR ---
PT PLACED ON RA AT THIS TIME. POX MAINTAINING > 90%. VSS. BREAKFAST TRAY ORDERED. PT QQUESTIONING IF SHE WILL GET TO GO HOME TODAY. EXPLAINED TO PT THAT WE HAVE TO WAIT FOR THE PHYSICIAN TO COME BY TO SEE HER SO WE KNOW WHAT HE IS THINKING, PT VERBALIZED UNDERSTANDING. CALL LIGHT WITHIN REACH.
[2019-08-04 09:07] LABS: TROPONIN-I 0.053 ng/mL (0.000-0.035)
--- NOTE | 2019-08-04 10:00 | NUR ---
PT SLEEPING EASILY ON RA. NO ACUTE S/S OF RESP DISTRESS NOTED. VSS. CALL LIGHT WITHIN REACH.
--- NOTE | 2019-08-04 13:15 | NUR ---
DR ALFARO AT BEDSIDE FOR ASSESSMENT. PHSYICIAN REQUESTS ORTHO TO SEE PT FOR POSSIBLE INJECTION IN RT SHOULDER. AFTER ORTHO CONSULT, ORDERS TO CALL PHYSICIAN BACK FOR NEXT POC. PT INFORMED OF POC AT THIS TIME. VERBALIZED UNDERSTANDING. PT REMAINS SOMEWHAT CONFUSED BUT IS COOPERATIVE WITH CARE.
--- NOTE | 2019-08-04 13:25 | NUR ---
JUST VANDANA JACOBO WITH ORTHO NOTIFIED. AWAITING FOR CALL BACK ABOUT POC.
--- NOTE | 2019-08-04 13:45 | NUR ---
VANDANA JACOBO CALLED BACK TO HAVE SUPPLIES GATHERED FOR INJECTION IN RT SHOULDER. EXPLAINED TO PT ABOUT PROCEDURE. APPEARS TO UNDERSTAND BUT MAKES OCCASSIONAL CONFUSED STATEMENTS.
--- NOTE | 2019-08-04 14:10 | NUR ---
VANDANA JACOBO AT BEDSIDE EXPLAINING PROCEDURE TO PT. PT STATES YES SHE WOULD LIKE TO TRY THE INJECTION, SEE PHYSICIAN DICTATION FOR FURTHER INFORMATION. PT TOLERATED WELL.
--- NOTE | 2019-08-04 14:20 | NUR ---
PT REQUESTS PAIN PILL AT THIS TIME. SEE MAR. PT IS TEARFUL AND CONTINUOUSLY CONPLAINS OF PAIN TO RT SHOULDER AT THIS TIME.
--- NOTE | 2019-08-04 14:30 | NUR ---
UPDATED DR ALFARO ON ORTHO PROVIDING PT WITH IJECTION. DISCUSSED POC TO SEND PT BACK TO [facility], AWAITING DC ORDERS. NOTIFIED CASE MANAGEMENT TO SET UP TRANSPORT.
--- NOTE | 2019-08-04 15:23 | NUR ---
FROG CATCHER student received a phone call from ICU nurse, Dr. Brooks would like to discharge the patient back to [facility] today, 08/04. FROG CATCHER student faxed updates and contacted Abdirizak at . Abdirizak at reports they can pickup driver the patient [id number]. FROG CATCHER student attempted to meet with the patient but patient's nurse reports she is confused. FROG CATCHER student contacted Abdirizak. Abdirizak reports the patient is 2/3 way of getting a guardian with the help of APS and Dr. Yan. The patient has all her needs met at . FROG CATCHER attempted to contact the patient's son and the number was not in service. There are no additional needs at this time.
--- NOTE | 2019-08-04 15:45 | NUR ---
GAVE REPORT TO MARCEL HERNANDEZ LPN AT [facility]. NOTIFIED THAT TRANSPORTATION WILL BE HERE [facility] 6400 TO DIRECTORY COMPILER PT.
--- NOTE | 2019-08-04 16:00 | NUR ---
PT DRESSED AND PLACED IN RECLINER AWAITING FOR TRANSPORTATION. CALL LIGHT WITHIN REACH.
== END 2019-08-04 16:25 | DRG 553 ==
LOC: COL.ER 17:33 → ICU 18:54
PROVIDERS: Emergency Medicine; ADMIT Emergency Medicine
DX: M19.011 Primary osteoarthritis, right shoulder (principal); I21.4 Non-ST elevation (NSTEMI) myocardial infarction; I95.9 Hypotension, unspecified; M77.9 Enthesopathy, unspecified; F03.90 Unspecified dementia, unspecified severity, without behavioral disturbance, psychotic disturbance, mood disturbance, and anxiety; E11.9 Type 2 diabetes mellitus without complications; E86.0 Dehydration; N19 Unspecified kidney failure; F32.9 Major depressive disorder, single episode, unspecified; E78.5 Hyperlipidemia, unspecified; G30.9 Alzheimer's disease, unspecified; F02.80 Dementia in other diseases classified elsewhere, unspecified severity, without behavioral disturbance, psychotic disturbance, mood disturbance, and anxiety; I50.9 Heart failure, unspecified; Z85.528 Personal history of other malignant neoplasm of kidney; Z90.49 Acquired absence of other specified parts of digestive tract; I11.0 Hypertensive heart disease with heart failure; I87.2 Venous insufficiency (chronic) (peripheral); G89.29 Other chronic pain; J44.9 Chronic obstructive pulmonary disease, unspecified; K21.9 Gastro-esophageal reflux disease without esophagitis; F41.9 Anxiety disorder, unspecified; I48.2 Chronic atrial fibrillation; Z79.84 Long term (current) use of oral hypoglycemic drugs; Z82.49 Family history of ischemic heart disease and other diseases of the circulatory system; Z79.01 Long term (current) use of anticoagulants
CPT/HCPCS: J3010; J7030

== ENCOUNTER → 2019-08-13 | Outpatient (CLI) | payer MEDICARE, OTHER ==
[~2019-08-13] MED LIST changes: +ALMACONE 360 M360 ML PO
[2019-08-13 16:31] LABS: HEMATOCRIT 44.1 % (37.0-47.0); HEMOGLOBIN 13.7 g/dl (12.5-16.0)
== END ==
LOC: ZCOL.LAB 16:21
PROVIDERS: Emergency Medicine
DX: E11.9 Type 2 diabetes mellitus without complications (principal); Z79.01 Long term (current) use of anticoagulants

== ENCOUNTER → 2019-08-25 | Outpatient (CLI) | payer MEDICARE, OTHER ==
[2019-08-25 14:22] LABS: COLLECTION METHOD CLEAN CATCH
[2019-08-25 14:53] LABS: MUCOUS Present /lpf; PH 5 (5-8); SQUAMOUS EPITHELIAL 0-2 /hpf; URINE APPEARANCE Turbid; URINE BACTERIA Rare /hpf; URINE BILIRUBIN Negative (NEGATIVE); URINE BLOOD Negative (NEGATIVE); URINE COLOR Amber; URINE GLUCOSE Negative (NEGATIVE); URINE KETONE Negative (NEGATIVE); URINE LEUKOCYTE ESTERASE 3+ (NEGATIVE); URINE NITRATE Negative (NEGATIVE); URINE PROTEIN(semi-quant) 1+ (NEGATIVE); URINE RBC 20-50 /hpf; URINE UROBILINOGEN Negative (NEGATIVE); URINE WBC >50 /hpf
== END ==
LOC: ZCOL.LAB 13:41
PROVIDERS: Emergency Medicine
DX: N39.0 Urinary tract infection, site not specified (principal)

== ENCOUNTER 2019-10-27 23:15 | Emergency (ER) | payer MEDICARE, OTHER ==
[2019-10-27 23:15] VITALS: TEMP 98.9
[2019-10-28 00:02] LABS: BASO % 0.2 % (0.0-2.0); EOS % 0.3 % (0-4.0); GRAN # 6.1 (1.4-6.5); GRAN % 67.1 % (42.2-75.2); HEMATOCRIT 46.3 % (37.0-47.0); HEMOGLOBIN 15.1 g/dl (12.5-16.0); LYMPH % 22.2 % (20.0-51.0); MEAN CELL VOLUME 88 fl (80.0-100.0); MEAN CORPUSCULAR HEMOGLOBIN 29 pg (27.0-31.0); MEAN CORPUSCULAR HGB CONC 33 g/dl (33.0-37.0); MEAN PLATELET VOLUME 9.3 fl (7.4-10.4); MONO # 0.9 (0.1-0.6); MONO % 9.9 % (1.7-9.3); PLATELET COUNT 219 K/mm3 (130-400); RED BLOOD COUNT 5.25 M/mm3 (4.10-5.30); REDCELL DISTRIBUTION WIDTH-CV 15.6 % (11.5-14.5)
[2019-10-28 00:26] LABS: ALBUMIN 4.4 gm/dL (3.5-5.0); BILIRUBIN,TOTAL 0.9 mg/dL (0.0-1.0); CALCIUM 10.4 mg/dL (8.4-10.2); CREATININE, serum 0.91 (0.52-1.25); POTASSIUM 4.7 mmol/L (3.4-5.0); TOTAL PROTEIN 8.1 gm/dL (6.4-8.2)
[2019-10-28 00:29] LABS: ERYTHROCYTE SEDIMENTATION RATE 10 mm/hr (0-30)
[2019-10-28] MEDS ORDERED: NORCO 325 MG-51 TAB PO (01:20)
[2019-10-28 02:25] VITALS: BP 142/86; PULSE 82
== END 2019-10-28 02:25 ==
LOC: COL.ER 23:15
PROVIDERS: Emergency Medicine
DX: M25.552 Pain in left hip (principal); E11.9 Type 2 diabetes mellitus without complications; I48.91 Unspecified atrial fibrillation; I50.9 Heart failure, unspecified; K21.9 Gastro-esophageal reflux disease without esophagitis; J44.9 Chronic obstructive pulmonary disease, unspecified; K58.9 Irritable bowel syndrome, unspecified; F03.90 Unspecified dementia, unspecified severity, without behavioral disturbance, psychotic disturbance, mood disturbance, and anxiety; Z79.84 Long term (current) use of oral hypoglycemic drugs

== ENCOUNTER → 2020-02-16 | Outpatient (CLI) | payer MEDICARE, OTHER ==
[2020-02-16 13:03] LABS: CALCIUM 10.6 mg/dL (8.4-10.2); CREATININE, serum 1.01 (0.52-1.25); POTASSIUM 5.3 mmol/L (3.4-5.0)
== END ==
LOC: ZCOL.LAB 12:18
PROVIDERS: Emergency Medicine
DX: K58.9 Irritable bowel syndrome, unspecified (principal); E11.9 Type 2 diabetes mellitus without complications

== ENCOUNTER → 2020-04-15 | Outpatient (CLI) | payer MEDICARE, OTHER ==
[2020-04-15 18:27] LABS: HEMATOCRIT 43.1 % (37.0-47.0); HEMOGLOBIN 13.8 g/dl (12.5-16.0)
[2020-04-15 18:34] LABS: ALBUMIN 3.5 gm/dL (3.5-5.0); BILIRUBIN,TOTAL 0.5 mg/dL (0.0-1.0); CALCIUM 9.9 mg/dL (8.4-10.2); CREATININE, serum 1.12 (0.52-1.25); POTASSIUM 5.3 mmol/L (3.4-5.0); TOTAL PROTEIN 6.8 gm/dL (6.4-8.2)
[2020-04-15 19:03] LABS: THYROID STIMULATING HORMONE 0.388 uIU/mL (0.465-4.680)
== END ==
LOC: ZCOL.LAB 17:23
PROVIDERS: Emergency Medicine
DX: E11.9 Type 2 diabetes mellitus without complications (principal); I48.91 Unspecified atrial fibrillation; E03.2 Hypothyroidism due to medicaments and other exogenous substances

== ENCOUNTER → 2020-05-06 | Outpatient (CLI) | payer MEDICARE, OTHER ==
[2020-05-06 16:25] LABS: COLLECTION METHOD CLEAN CATCH
[2020-05-06 17:13] LABS: PH 5 (5-8); SQUAMOUS EPITHELIAL None Seen /hpf; URINE APPEARANCE Turbid; URINE BACTERIA Many /hpf; URINE BILIRUBIN Negative (NEGATIVE); URINE BLOOD 2+ (NEGATIVE); URINE COLOR Yellow; URINE GLUCOSE Negative (NEGATIVE); URINE KETONE Negative (NEGATIVE); URINE LEUKOCYTE ESTERASE 3+ (NEGATIVE); URINE NITRATE Negative (NEGATIVE); URINE PROTEIN(semi-quant) 2+ (NEGATIVE); URINE UROBILINOGEN Negative (NEGATIVE); URINE WBC >50 /hpf
== END ==
LOC: ZCOL.LAB 14:49
PROVIDERS: Emergency Medicine
DX: N39.0 Urinary tract infection, site not specified (principal)

== ENCOUNTER → 2020-05-10 | Outpatient (CLI) | payer MEDICARE, OTHER ==
[2020-05-10 15:08] LABS: COLLECTION METHOD CATHETER
[2020-05-10 15:33] LABS: PH 5 (5-8); URINE APPEARANCE Cloudy; URINE BACTERIA Many /hpf; URINE BILIRUBIN Negative (NEGATIVE); URINE BLOOD 1+ (NEGATIVE); URINE COLOR Yellow; URINE GLUCOSE Negative (NEGATIVE); URINE KETONE Negative (NEGATIVE); URINE LEUKOCYTE ESTERASE 3+ (NEGATIVE); URINE NITRATE Negative (NEGATIVE); URINE PROTEIN(semi-quant) 2+ (NEGATIVE); URINE UROBILINOGEN Negative (NEGATIVE); URINE WBC >50 /hpf
== END ==
LOC: ZCOL.LAB 14:12
PROVIDERS: Emergency Medicine
DX: N39.0 Urinary tract infection, site not specified (principal)

== ENCOUNTER → 2020-05-31 | Outpatient (CLI) | payer MEDICARE, OTHER | LOC: ZCOL.LAB 13:35 | DX: E03.9 Hypothyroidism, unspecified (principal) ==

== ENCOUNTER → 2020-06-03 | Outpatient (CLI) | payer MEDICARE, OTHER ==
[2020-06-03 09:45] LABS: HEMATOCRIT 43.2 % (37.0-47.0); MEAN CELL VOLUME 93 fl (80.0-100.0); MEAN CORPUSCULAR HEMOGLOBIN 30 pg (27.0-31.0); MEAN CORPUSCULAR HGB CONC 32 g/dl (33.0-37.0); MEAN PLATELET VOLUME 9.7 fl (7.4-10.4); PLATELET COUNT 234 K/mm3 (130-400); RED BLOOD COUNT 4.67 M/mm3 (4.10-5.30); REDCELL DISTRIBUTION WIDTH-CV 15.4 % (11.5-14.5)
[2020-06-03 09:55] LABS: ALBUMIN 3.9 gm/dL (3.5-5.0); BILIRUBIN,TOTAL 0.6 mg/dL (0.0-1.0); CALCIUM 10.1 mg/dL (8.4-10.2); CREATININE, serum 0.9 (0.52-1.25); POTASSIUM 5.5 mmol/L (3.4-5.0); TOTAL PROTEIN 7.3 gm/dL (6.4-8.2)
== END ==
LOC: ZCOL.LAB 09:01
PROVIDERS: Emergency Medicine
DX: E11.9 Type 2 diabetes mellitus without complications (principal); I48.91 Unspecified atrial fibrillation

== ENCOUNTER → 2020-06-08 | Outpatient (CLI) | payer MEDICARE, OTHER ==
[2020-06-08 13:09] LABS: BASO % 0.6 % (0.0-2.0); EOS # 0.1 (0.0-0.7); EOS % 2.7 % (0-4.0); GRAN # 3.2 (1.4-6.5); HEMATOCRIT 42.8 % (37.0-47.0); HEMOGLOBIN 13.5 g/dl (12.5-16.0); LYMPH # 1.5 (1.2-3.4); LYMPH % 28.3 % (20.0-51.0); MEAN CELL VOLUME 96 fl (80.0-100.0); MEAN CORPUSCULAR HEMOGLOBIN 30 pg (27.0-31.0); MEAN CORPUSCULAR HGB CONC 32 g/dl (33.0-37.0); MEAN PLATELET VOLUME 9.3 fl (7.4-10.4); MONO # 0.3 (0.1-0.6); MONO % 6.2 % (1.7-9.3); PLATELET COUNT 245 K/mm3 (130-400); RED BLOOD COUNT 4.44 M/mm3 (4.10-5.30); REDCELL DISTRIBUTION WIDTH-CV 15.1 % (11.5-14.5)
[2020-06-08 13:12] LABS: ALBUMIN 3.9 gm/dL (3.5-5.0); BILIRUBIN,TOTAL 0.5 mg/dL (0.0-1.0); CALCIUM 9.8 mg/dL (8.4-10.2); CREATININE, serum 1.03 (0.52-1.25); POTASSIUM 5.3 mmol/L (3.4-5.0); TOTAL PROTEIN 7.4 gm/dL (6.4-8.2)
== END ==
LOC: ZCOL.LAB 12:55
PROVIDERS: Emergency Medicine
DX: I50.9 Heart failure, unspecified (principal); E11.9 Type 2 diabetes mellitus without complications

== ENCOUNTER → 2020-09-21 | Outpatient (CLI) | payer MEDICARE, OTHER ==
[2020-09-21 11:32] LABS: CALCIUM 9.7 mg/dL (8.4-10.2); CREATININE, serum 0.89 (0.52-1.25); POTASSIUM 5.3 mmol/L (3.4-5.0)
== END ==
LOC: ZCOL.LAB 11:01
PROVIDERS: Emergency Medicine
DX: I50.9 Heart failure, unspecified (principal)